=== PATIENT | female | born 1950 | race Caucasian/White ===

== ENCOUNTER → 2016-09-23 | Outpatient (CLI) | payer BC ==
[~2016-09-23] MED LIST: ATACAND; BYSTOLIC5 MG PO; CLARITIN10 M3 PO; COQ-10200 MG PO; FISH OIL 1,0001 CAP PO; FLAXSEED1000 MG PO; HCTZ PO; LOPID600 MG; NEXIUM PO; OMEGA 3 FISH OIL; PREMPRO; PRILOSEC OTC; SYNTHROID; SYNTHROID PO; TOPROL XL; VITAMIN C500 M1 PO; VITAMIN D32000 UNIT PO
--- NOTE | ~2016-09-23 | US5 ---
[facility] A Service [facility] RADIOLOGY TEXT RESULTS PATIENT: DAVID JUÁREZ LOCATION: [facility] : 54 UNIT #: [id number] AGE: [address]: Justino Dash MD SEX: F ORDER DR: [id number] [facility] [address] [place], [place] [address] [id number] O MR#: [id number] Acc #: [id number] NAME: DAVID JUÁREZ : 1950 SEX: F STUDY DATE/TIME: 09/23/2016 7:14 UNIT: [facility] ROOM: STUDY DESCRIPTION: US Abdominal Complete Attending Physician: Justino Dash M.D. Ordering Physician: Justino Dash M.D. Primary Care Physician: Lavell Dorado M.D. MEDICAL IMAGING REPORT This report is preliminary unless electronic signature is present EXAM Abdominal ultrasound complete 09/23/2016 HISTORY Abdominal pain for 8 months with abnormally elevated liver enzymes. Pain primarily in the right upper quadrant radiating across the abdomen. FINDINGS The liver demonstrates a slight increase in echotexture with attenuation of the ultrasound beam characteristic of fatty infiltration. No cystic or solid mass lesions were seen in the liver. The intra and extrahepatic bile ducts are not dilated. The gallbladder is normal with no evidence of cholelithiasis, wall thickening or pericholecystic fluid. The common duct measures 5 mm. The pancreas and spleen are normal. The spleen measures 10.3 cm in greatest diameter. The visualized portions of the abdominal aorta and inferior vena cava are within normal limits. The kidneys are normal bilaterally. IMPRESSION Mild fatty infiltration of the liver. Otherwise negative abdominal ultrasound. Dictated by... Juvenal Bower M.D. THIS IS AN ELECTRONICALLY VERIFIED REPORT Juvenal Bower M.D. at 09/26/2016 7:38 AM DAVE/alfredo TD: 09/23/2016 22:34 JOB #: [id number] MEDICAL IMAGING REPORT [facility] A Service [facility] RADIOLOGY TEXT RESULTS PATIENT: DAVID JUÁREZ LOCATION: [facility] #: [id number] : 54 UNIT #: [id number] AGE: [address]: Justino Dash MD SEX: F ORDER DR: Page 1 of 1 COPY
== END | disposition home or self-care (01) ==
LOC: CGUS 06:52
DX: R10.11 Right upper quadrant pain (principal); R74.8 Abnormal levels of other serum enzymes; K76.0 Fatty (change of) liver, not elsewhere classified
CPT/HCPCS: 76700

== ENCOUNTER → 2017-02-02 | Outpatient (CLI) | payer MEDICARE, BC ==
--- NOTE | ~2017-02-02 | BD1 ---
[facility] A Service of [facility] RADIOLOGY TEXT RESULTS PATIENT: DAVID JUÁREZ LOCATION: [facility] : 54 UNIT #: [id number] AGE: [address]: Justino Dash MD SEX: F ORDER DR: [id number] [facility] [address] [place], [place] [address] [id number] O MR#: [id number] Acc #: [id number] NAME: DAVID JUÁREZ : 1950 SEX: F STUDY DATE/TIME: 02/02/2017 12:38 UNIT: [facility] ROOM: STUDY DESCRIPTION: BD Dexa Bone Dens 1+ Site Attending Physician: Justino Dash M.D. Referring Physician: Justino Dash M.D. Ordering Physician: Justino Dash M.D. Primary Care Physician: Justino Dash M.D. MEDICAL IMAGING REPORT This report is preliminary unless electronic signature is present EXAM DXA scan, 02/02/2017. HISTORY Status post menopause with no hormone replacement therapy. Osteopenia. Arthritis. Liver disease. Hyperthyroidism. Thyroid medication for 15 years. Hypertension with blood pressure medication for 10 years. FINDINGS Bone mineral density in the lumbar spine from L1 through L4 is 0.971 g/cm2 which is 0.7 standard deviations below the mean when compared to the young adult reference population which is within the range of normal. This is 1.1 standard deviations above the mean when compared to the age-matched population. Bone mineral density in the left hip was 0.837 g/cm2 which is 0.1 standard deviations below the mean when compared to the young adult reference population which is within the range of normal. This is 1.4 standard deviations above the mean when compared to the age-matched population. IMPRESSION Bone mineral density in the lumbar spine and left hip within the range of normal. Dictated by... Juvenal Bower M.D. THIS IS AN ELECTRONICALLY VERIFIED REPORT Juvenal Bower M.D. at 02/03/2017 7:18 AM DAVE/dharmesh TD: 02/02/2017 21:58 JOB #: [id number] [facility] A Service of [facility] RADIOLOGY TEXT RESULTS PATIENT: DAVID JUÁREZ LOCATION: [facility] : 54 UNIT #: [id number] AGE: [address]: Justino Dash MD SEX: F ORDER DR: MEDICAL IMAGING REPORT Page 1 of 1 COPY
== END | disposition home or self-care (01) ==
LOC: CWCC 12:17
DX: Z13.820 Encounter for screening for osteoporosis (principal); Z78.0 Asymptomatic menopausal state
CPT/HCPCS: 77080